=== PATIENT | female | born 1985 | race Caucasian/White ===

== ENCOUNTER 2017-02-08 18:15 | Emergency (ER) | payer BC ==
[~2017-02-08] VITALS: Ht 170.2 cm; Wt 72.6 kg
[2017-02-08 18:43] VITALS: BP 159/84
--- NOTE | 2017-02-08 19:17 | NUR ---
PT TAKEN TO XRAY FROM THE LOBBY
--- NOTE | 2017-02-08 19:33 | NUR ---
PT RETURN FROM XRAY TO OF4
--- NOTE | 2017-02-08 20:14 | NUR ---
Dr. Ag evaluating patient
[2017-02-08 20:30] VITALS: BP 148/72
--- NOTE | 2017-02-08 20:30 | NUR ---
Patient discharged with v/s stable. Written and verbal after care instructions given and explained. Patient alert, oriented and verbalized understanding of instructions. Ambulatory with steady gait. All questions addressed prior to discharge. ID band removed. Patient advised to follow up with PMD. Rx of Flexeril and Ibuprofen given. Patient educated on indication of medication including possible reaction and side effects. Opportunity to ask questions provided and answered.
== END 2017-02-08 20:30 | disposition home or self-care (01) ==
LOC: MED 18:15
DX: S13.4XXA Sprain of ligaments of cervical spine, initial encounter (principal); M54.5 Low back pain; J45.909 Unspecified asthma, uncomplicated; V49.9XXA Car occupant (driver) (passenger) injured in unspecified traffic accident, initial encounter; Y93.89 Activity, other specified; Y92.488 Other paved roadways as the place of occurrence of the external cause; Y99.8 Other external cause status
CPT/HCPCS: 72050; 99284

== ENCOUNTER 2017-11-16 14:55 | Emergency (ER) | payer BC ==
[~2017-11-16] VITALS: Ht 170.2 cm; Wt 74.4 kg
[2017-11-16 15:00] VITALS: BP 142/89
--- NOTE | 2017-11-16 15:04 | NUR ---
AMBULATES TO BED 12 WITH STEADY GAIT
--- NOTE | 2017-11-16 15:19 | NUR ---
32 YO F PT BIB SELF W/ C/O BURNING SENSATION WHEN URINATING FOR 3 DAYS. DENIES ABD PAIN, FEVER/CHILLS. MILD PERIODIC NAUSEA. STATES SHE TRIED TAKING CRANBERRY PILLS WITH NO RELIEF. AAOX4. GCS 15. CMS INTACT. RR EVEN AND UNLABORED. LUNGS CLEAR. ER MD THAPA NOTIFIED. PT NEEDS MET. SAFETY PRECAUTIONS IN PLACE. WILL CONTINUE TO MONITOR.
[2017-11-16] MEDS ORDERED: LEVOFLOXACIN 500 MG TAB PO ONE (15:20)
[2017-11-16 15:36] VITALS: BP 142/89
--- NOTE | 2017-11-16 15:37 | NUR ---
Patient discharged with v/s stable. Written and verbal after care instructions given and explained. Patient alert, oriented and verbalized understanding of instructions. Ambulatory with steady gait. All questions addressed prior to discharge. ID band removed. Patient advised to follow up with PMD. Rx of Pyridium and Levaquin given. Patient educated on indication of medication including possible reaction and side effects. Opportunity to ask questions provided and answered.
[2017-11-16 15:59] LABS: APPEARANCE,URINE SL CLOUDY (CLEAR); BILIRUBIN,URINE NEGATIVE (NEGATIVE); BLOOD, URINE 1+ (NEGATIVE); COLOR,URINE YELLOW (YELLOW); LEUKOCYTE ESTERASE ,URINE 1+ (NEGATIVE); NITRITE, URINE NEGATIVE (NEGATIVE); UGLUCOSE NEGATIVE (NEGATIVE)
[2017-11-16 16:26] LABS: RBC,URINE 11-20 (MOD) /HPF (0-5); WBC,URINE 80-100 /HPF (0-5)
== END 2017-11-16 15:37 | disposition home or self-care (01) ==
LOC: MED 14:55
DX: N30.90 Cystitis, unspecified without hematuria (principal); N39.0 Urinary tract infection, site not specified; J45.909 Unspecified asthma, uncomplicated
CPT/HCPCS: 81001; 81025; 87086; 87186; 99284

== ENCOUNTER 2017-12-12 13:55 | Emergency (ER) | payer BC ==
[~2017-12-12] VITALS: Ht 162.6 cm; Wt 68.0 kg
[2017-12-12 14:08] VITALS: BP 136/61
--- NOTE | 2017-12-12 14:08 | NUR ---
Patient triaged at bedside. urine sample provided.
--- NOTE | 2017-12-12 14:12 | NUR ---
PT. CAME INTO THE ED DUE TO X1 WEEK PAINFUL URINATION AND VAGINAL ITCHING. PT STATES " IT STARTED ABOUT A WEEK AGO MY VAGINA WAS VERY ITCHY AND SWOLLEN AND THEN A COUPLE OF DAYS LATER I STARTED WITH THE PAIN WHEN I GO PEE AND IT GOES TO MY LOWER LEFT SIDE". 5/10 BURNING PAIN UPON URINATION RADIATING TO LOWER LEFT BACK. RR EVEN AND UNLABORED. DENIES FEVERS AND NAUSEA OR VOMITING. DOES COMPLAIN OF DIZZYNESS. AT BEDSIDE. ER MD NOTIFIED. WILL CONTINUE TO MONITOR.
[2017-12-12] MEDS ORDERED: IBUPROFEN 600 MG TAB PO ONE (15:05)
--- NOTE | 2017-12-12 15:30 | NUR ---
PT. RESTING COMFORTABLY IN BED, RR EVEN AND UNLABORED. FAMILY MEMBER AT BEDSIDE. WILL CONTINUE TO MONITOR.
--- NOTE | 2017-12-12 16:35 | NUR ---
PT. RESTING IN BED AT THIS TIME, RR EVEN AND UNLABORED. FAMILY AT BEDSIDE. WILL CONTINUE TO MONITOR.
[2017-12-12 17:05] VITALS: BP 124/70
--- NOTE | 2017-12-12 17:05 | NUR ---
Patient discharged with v/s stable. Written and verbal after care instructions given and explained. Patient alert, oriented and verbalized understanding of instructions. Ambulatory with steady gait. All questions addressed prior to discharge. ID band removed. Patient advised to follow up with PMD. Rx of KEFLEX, AND PHENAZOPYRIDINE given. Patient educated on indication of medication including possible reaction and side effects. Opportunity to ask questions provided and answered.
[2017-12-14 07:41] LABS: CHLAMYDIA TRACHOMATIS AMP DNA Negative (Negative)
== END 2017-12-12 17:05 | disposition home or self-care (01) ==
LOC: MED 13:55
DX: N89.8 Other specified noninflammatory disorders of vagina (principal); R30.0 Dysuria; J45.909 Unspecified asthma, uncomplicated
CPT/HCPCS: 36415; 81002; 81025; 87086; 87186; 87210; 87491; 99284

== ENCOUNTER 2018-05-10 13:05 | Emergency (ER) | payer BC ==
[~2018-05-10] VITALS: Ht 170.2 cm; Wt 68.0 kg
[2018-05-10 13:17] VITALS: BP 128/79
[2018-05-10 16:58] VITALS: BP 125/75
== END 2018-05-10 16:33 | disposition home or self-care (01) ==
LOC: MED 13:05
DX: J02.9 Acute pharyngitis, unspecified (principal); J45.909 Unspecified asthma, uncomplicated
CPT/HCPCS: 81002; 81025; 99283

== ENCOUNTER 2020-03-16 02:17 | Emergency (ER) | payer BC ==
[~2020-03-16] VITALS: Ht 170.2 cm; Wt 61.7 kg
[2020-03-16 02:45] VITALS: BP 174/87
--- NOTE | 2020-03-16 03:10 | NUR ---
To ED bed 11
--- NOTE | 2020-03-16 03:35 | NUR ---
no nursing intervention ordered by Dr. Balderrama
--- NOTE | 2020-03-16 03:36 | NUR ---
Patient discharged with v/s stable. Written and verbal after care instructions given and explained. Patient verbalized understanding. Ambulatory with steady gait. All questions addressed prior to discharge. Advised to follow up with PMD.
== END 2020-03-16 03:36 | disposition home or self-care (01) ==
LOC: MED 02:17
DX: M79.602 Pain in left arm (principal)
CPT/HCPCS: 99281